=== PATIENT | male | born 2000 | race Two or more races ===

== ENCOUNTER 2019-12-15 11:03 | Emergency (ER) | payer MEDICAID ==
[~2019-12-15] VITALS: Ht 170.2 cm; Wt 117.9 kg
[2019-12-15 11:10] VITALS: BP 148/97
== END 2019-12-15 12:07 | disposition home or self-care (01) ==
LOC: ER 11:03
DX: J06.9 Acute upper respiratory infection, unspecified (principal); B08.4 Enteroviral vesicular stomatitis with exanthem
CPT/HCPCS: 71046